=== PATIENT | female | born 1990 | race Caucasian/White ===

== ENCOUNTER → 2017-08-02 | Outpatient (CLI) | payer BC | LOC: LAB.O 17:28 | PROVIDERS: ATTEND Nurse Practitioner Family | DX: J45.41 Moderate persistent asthma with (acute) exacerbation (principal) ==

== ENCOUNTER 2019-08-12 00:58 | Emergency (ER) | payer BC, OTHER ==
[2019-08-12] MEDS ORDERED: SODIUM CHLORIDE 0.9% 1000ML 1,000 ML IVS ONE ×2 (00:59→01:25)
[2019-08-12] MEDS ORDERED: OXYTOCIN INJ 10 UNITS/ML VIAL IV ONE (00:59)
[2019-08-12] MEDS: LACTATED RINGERS IVS SCH ×2 (01:05→02:51)
[2019-08-12] MEDS: OXYTOCIN IVS SCH ×2 (01:05→02:51)
[2019-08-12] MEDS ORDERED: POVIDONE IODINE 10 % 15 ML UD TOP ONE (01:08)
[2019-08-12] MEDS ORDERED: SODIUM CHLORIDE 0.9% (FLUSH) 10 ML SYG IV PRN (01:23)
[2019-08-12] MEDS ORDERED: IV SET AND CAP CHANGE INJ INJ SCH (01:30)
[2019-08-12] MEDS ORDERED: OXYTOCIN INJ 20 UNITS in SODIUM CHLORIDE 0.9% 1000ML 1,000 ML IVS SCH (01:30)
--- NOTE | 2019-08-12 01:48 | ED.PDOC ---
History of Present Illness - General Chief Complaint: ACCREDITED PHARMACY TECHNICIAN Problem Stated Complaint: delivered Time Seen by Provider: 08/12/19 01:28 Source: patient Exam Limitations: no limitations - History of Present Illness Initial Comments: The patient is a 28-year-old female presenting to the emergency room after having delivered her baby at home. The patient started feeling some pain at around 6 PM. The child delivered at about 1240 in the morning. EMS was called at delivery. There was a fair amount of blood on the floor apparently. EMS did clamp the cord on the child placenta had not yet been delivered by the time the mom arrived here. First on the child at about 15 to 20 minutes after was 8, second was a 9. The child is saturating 100% on room air. Initial temperature was 98 4. Heart rates are in the 150s to 160s. The child did have very brief apneic spells for the first 5 minutes or so here. Those have resolved. Lung gonzalez are clear. The child does still look a little bit pale. Good muscle tone. Strong cry. No respiratory distress. Placenta was delivered by me approximately 10 to 15 minutes after arrival here. Three-vessel cord. The placenta did not come out in 1 smooth piece. I do not believe there are any remnants left behind. Fundus is firm with good hemostasis at this time. Difficult to estimate blood loss as I did not see the house. I estimate that it is probably around 350 to 400 cc. Pitocin was started on the patient as well as a liter of normal saline. Mother reports that she is a G2, P1 at approximately 38 weeks and 2 days. She is a patient of Dr. Hedrick. She reports that she just finished a 10-day course of oral antibiotics, she thinks that were Bactrim, for a urinary tract infection. She reports uncomplicated course otherwise. Timing/Duration: getting worse Severity: moderate Improving Factors: nothing Worsening Factors: nothing Associated Symptoms: denies symptoms Allergies/Adverse Reactions: Allergies NO KNOWN ALLERGY Allergy (Verified 08/12/19 01:23) Review of Systems - Review of Systems Constitutional: States: malaise EENTM: States: no symptoms reported Respiratory: States: no symptoms reported Cardiology: States: no symptoms reported Gastrointestinal/Abdominal: States: abdominal pain Genitourinary: States: see HPI Musculoskeletal: States: no symptoms reported Skin: States: no symptoms reported Neurological: States: no symptoms reported All other Systems: No Change from Baseline Physical Exam - Physical Exam General Appearance: Alert, No apparent distress Eye Exam: bilateral normal Ears, Nose, Throat: hearing grossly normal, normal ENT inspection Neck: non-tender, supple Respiratory: no respiratory distress, no accessory muscle use Cardiovascular/Chest: normal peripheral pulses, regular rate, rhythm, no edema Peripheral Pulses: radial,right: 2+, radial,left: 2+ Gastrointestinal/Abdominal: soft, other - Fundus was not initially firm but has firmed up after delivery of the placenta. Rectal Exam: other - No large lacerations of the perineum were found. 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 Placenta was delivered here. CBC and blood type were obtained here. Other maternal labs will need to be obtained at the receiving facility, along with other appropriate care. Mother and child appear to be doing fairly well at this point. The only main concern is it is unknown how much blood loss there was at the delivery at home. The child's vital signs are reassuring however she is a little bit pale. She is oxygenating very well at 100% on room air and in no distress. The child is breast-feeding. She is receiving approximately a 30 to 40 cc slow fluid bolus over the transit route to [place]. A hemoglobin at some point over the next 12 hours may be worthwhile. Dr. Hedrick, her primary meter mechanic, has been contacted and has agreed to accept the patient at that facility. Transferring for specialty care. 08/12/19 01:54 lia greenberg [id number] - Results/Orders Results/Orders: Laboratory Tests 08/12/19 08/12/19 01:25 02:30 WBC 12.6 H RBC 4.52 Hgb 12.9 Hct 38.0 MCV 84.1 MCH 28.5 MCHC 33.9 RDW 13.7 Plt Count 217 MPV 10.5 H Absolute Neuts (auto) 9.20 H Absolute Lymphs (auto) 2.50 Absolute Monos (auto) 0.70 Absolute Eos (auto) 0.10 Absolute Basos (auto) 0.10 Neutrophils % 73.0 Lymphocytes % 20.0 Monocytes % 5.9 Eosinophils % 0.6 L Basophils % 0.5 Patient ABO/Rh O POSITIVE Departure - Departure Clinical Impression: Delivery of Disposition: Transfer to Hospital Condition: Fair Departure Forms: ED Discharge - Pt. Copy, Patient Portal Self Enrollment Referrals: Blaine Sen III, MD [Family Provider] - 1-2 Weeks Transfer to Outside Facility - Transfer Information Decision to Transfer Date: 08/12/19 Decision to Transfer Time: 01:55 Reason for Transfer: required specialist not available Accepting Provider:: dr hedrick Accepting Facility: [facility]
[2019-08-12 03:25] VITALS: O2SAT 97
[2019-08-12 04:16] VITALS: TEMP 97.7
[2019-08-12 04:26] VITALS: BP 127/87
== END 2019-08-12 02:55 | disposition short-term general hospital (02) ==
LOC: ER 00:58
DX: Z39.0 Encounter for care and examination of mother immediately after delivery (principal); O73.0 Retained placenta without hemorrhage; Z87.440 Personal history of urinary (tract) infections
CPT/HCPCS: 59414; 85025; 86901; 96365; 96366; 99285; J2590; J7030; J7120